=== PATIENT | female | born 1980 | race American Indian/Alaskan Native ===

== ENCOUNTER 2017-06-17 07:54 | Outpatient (CLI) | payer BC ==
--- NOTE | 2017-06-17 14:10 | Fluoroscopy Report ---
UPPER GI SERIES WITH AIR-CONTRAST History: Epigastric pain, gastric sleeve surgery Findings: [employer] film of the abdomen demonstrates an unremarkable bowel gas pattern. 50 fluoroscopic images were obtained during this exam. Deglutition is normal. No evidence for aspiration. The esophagus is normal caliber and mucosal pattern throughout. Gastric sleeve surgery changes are identified. There is no evidence for obstruction or extravasation of contrast. There is suggestion of an ulcer or outpouching along the lesser curvature of the stomach just distal to the GE junction. I cannot exclude an ulcer. Please correlate with the images. The remainder of the stomach is unremarkable. The duodenum and multiple proximal small bowel loops are normal. Impression: Question a small ulcer along the lesser curvature of the stomach as described above. Consider direct visualization
== END 2017-06-17 07:55 | disposition home or self-care (01) ==
LOC: FLUORO 07:54
PROVIDERS: ATTEND Specialist
DX: R10.13 Epigastric pain (principal); Z98.84 Bariatric surgery status
CPT/HCPCS: 74247